=== PATIENT | female | born 1960 | race Hispanic/Latino ===

== ENCOUNTER 2018-06-22 19:04 | Inpatient (IN) | payer OTHER, SELFPAY ==
[~2018-06-22] VITALS: Ht 154.9 cm; Wt 81.0 kg
[~2018-06-22 19:04] MED LIST: TYL4 GT
[2018-06-22] MEDS ORDERED: ONDANSETRON HCL 4 MG/2 ML VIAL ONE ×2 (19:40→21:23)
[2018-06-22 19:55] LABS: APPEARANCE,URINE CLEAR (CLEAR); BILIRUBIN,URINE SMALL (NEGATIVE); COLOR,URINE YELLOW (YELLOW); GLUCOSE, URINE (UA) NEGATIVE (NEGATIVE); KETONES,URINE 15 mg/dL (NEGATIVE); LEUKOCYTE ESTERASE ,URINE NEGATIVE (NEGATIVE); NITRATE,URINE NEGATIVE (NEGATIVE); OCCULT BLOOD,URINE SMALL (NEGATIVE); PROTEIN,URINE TRACE (NEGATIVE); UROBILINOGEN,URINE 0.2 mg/dL (0.2-1.0)
[2018-06-22 19:59] LABS: BACTERIA,URINE Few /HPF (None Seen); MUCUS,URINE Rare LPF (None Seen); SQUAMOUS EPITHELIAL CELL,UR Rare /HPF (0-2); WBC,URINE 0-1 /HPF (0-1)
[2018-06-22 20:04] LABS: BASOPHILS % (AUTO) 0.3 % (0.0-5.0); INR 1.09 (0.85-1.15); LYMPHOCYTES % (AUTO) 7.7 % (21.0-51.0); MEAN CORPUSCULAR HEMOGLOBIN 30.9 pg (27.0-33.0); MEAN CORPUSCULAR HGB CONC 34.6 g/dL (32.0-36.0); MEAN CORPUSCULAR VOLUME 89.5 fL (79-99); MONOCYTES % (AUTO) 2.2 % (3.0-13.0); NEUTROPHILS % (AUTO) 89.8 % (40.0-77.0); PARTIAL THROMBOPLASTIN TIME 32.2 SEC (26.3-35.5); PLATELET COUNT (AUTO) 294 K/uL (130-400); PROTHROMBIN TIME 11.4 SEC (9.6-11.6); RED CELL DISTRIBUTION WIDTH 13.3 % (11.0-15.5); WHITE BLOOD COUNT (AUTO) 14.5 K/uL (4.8-10.8)
[2018-06-22 20:07] LABS: CARBON DIOXIDE 28 mmol/L (21-32); CHLORIDE 97 mmol/L (101-111); GLOMERULAR FILTR. RATE CALC 61 mL/min (>60); GLUCOSE,RANDOM 141 mg/dL (70-105); POTASSIUM 3.2 mmol/L (3.5-5.1); SODIUM SERUM 135 mmol/L (136-145); UREA NITROGEN, BLOOD 11 mg/dL (7-18)
[2018-06-22 20:13] LABS: OCCULT BLOOD STOOL SINGLE ONLY NEGATIVE (NEGATIVE)
[2018-06-22] MEDS ORDERED: HYOSCYAMINE SULFATE 0.125 MG TAB.SUBL SL ONE (20:13)
[2018-06-22 20:17] LABS: ALANINE AMINOTRANSFERASE 40 U/L (12-78); ALBUMIN 4.1 g/dL (3.5-5.0); ASPARTATE AMINOTRANSFERASE 33 U/L (10-37); BILIRUBIN,TOTAL 0.4 mg/dL (0.2-1.0); CREATINE KINASE, TOTAL 87 U/L (21-232); MYOGLOBIN 38 ng/mL (10-92); TOTAL PROTEIN, SERUM 8.1 g/dL (6.0-8.3); TROPONIN I < 0.04 ng/mL (0.00-0.06)
[2018-06-22] MEDS ORDERED: ACETAMINOPHEN 325 MG TAB ONE (22:51)
[2018-06-22] MEDS ORDERED: CEFTRIAXONE SODIUM 1 GM IVP SCH (23:15)
[2018-06-22] MEDS ORDERED: MAGNESIUM 2GM PREMIX 50ML 50 ML IV PRN (23:15)
[2018-06-23 00:10] VITALS: BP 91/51
[2018-06-23] MEDS ORDERED: ONDANSETRON HCL MDV 20ML 2 MG/ML VIAL IV PRN (00:15)
[2018-06-23] MEDS ORDERED: DEXTROSE 50%-WATER 50 ML DISP.SYRIN IV PRN (00:15)
[2018-06-23] MEDS ORDERED: ACETAMINOPHEN 325 MG TAB PO PRN (00:15)
[2018-06-23] MEDS ORDERED: GLUCAGON 1MG KIT 1 MG ML IM PRN (00:15)
[2018-06-23] MEDS: SODIUM CHLORIDE 0.9% 1000ML 1,000 ML IV SCH ×3 (00:36→12:09)
[2018-06-23 04:00] VITALS: BP 101/52
[2018-06-23 05:53] LABS: HEMATOCRIT 35.3 % (36-48); MEAN CORPUSCULAR VOLUME 88.5 fL (79-99); PLATELET COUNT (AUTO) 242 K/uL (130-400); RED BLOOD CELL COUNT(AUTO) 3.99 MIL/uL (4.00-5.50); RED CELL DISTRIBUTION WIDTH 13.2 % (11.0-15.5); WHITE BLOOD COUNT (AUTO) 13.6 K/uL (4.8-10.8)
[2018-06-23 06:15] LABS: BILIRUBIN,TOTAL 0.4 mg/dL (0.2-1.0); CREATININE 0.7 mg/dL (0.5-1.5); TOTAL PROTEIN, SERUM 6.3 g/dL (6.0-8.3)
[2018-06-23 06:16] LABS: POTASSIUM 2.9 mmol/L (3.5-5.1)
[2018-06-23] MEDS: POTASSIUM CHLORIDE 20MEQ/100ML 100 ML IV PRN (06:41)
[2018-06-23] MEDS ORDERED: INSULIN HUMULIN R 100 UNIT/ML 3ML SQ SCH (07:30)
[2018-06-23 08:00] VITALS: BP 74/37
[2018-06-23] MEDS: FAMOTIDINE/PF 20 MG/2 ML VIAL IV SCH (09:03)
[2018-06-23] MEDS: ENOXAPARIN SODIUM 30 MG/0.3 ML SQ SCH (09:05)
[2018-06-23 11:56] VITALS: BP 108/57
[2018-06-23] MEDS: LEVOFLOXACIN 500 MG/D5W 100 ML 100 ML IV SCH (12:09)
[2018-06-23] MEDS ORDERED: POTASSIUM CHLORIDE 10% ELIXIR 20 MEQ/15 ML UDCUP PO SCH (15:45)
[2018-06-23 16:00] VITALS: BP 108/63
[2018-06-23] MEDS: NS-20 MEQ KCL 1000ML 1,000 ML IV SCH (16:57)
[2018-06-23] MEDS: METRONIDAZOLE 500MG/100ML BAG 100 ML IV SCH ×2 (16:58→22:36)
[2018-06-23 20:00] VITALS: BP 96/55
[2018-06-23] MEDS ORDERED: FLUO-126 PO (22:47)
[2018-06-23] MEDS ORDERED: HYDR25TA PO (22:47)
[2018-06-23] MEDS ORDERED: METF-446 PO (22:47)
[2018-06-23] MEDS ORDERED: LEVO50TA11 PO (22:47)
[2018-06-23] MEDS ORDERED: LISI-613 PO (22:47)
[2018-06-23] MEDS ORDERED: ACET1TAB12 PO (22:52)
[2018-06-23] MEDS ORDERED: GLIM2TAB3 PO (22:52)
[2018-06-23] MEDS ORDERED: CEPH500T PO (22:52)
[2018-06-24] VITALS (7 sets, daily range): BP systolic 99–129; BP diastolic 50–79
[2018-06-24 04:15] LABS: HEMATOCRIT 31.9 % (36-48); MEAN CORPUSCULAR HEMOGLOBIN 31.1 pg (27.0-33.0); MEAN CORPUSCULAR HGB CONC 35.1 g/dL (32.0-36.0); MEAN CORPUSCULAR VOLUME 88.5 fL (79-99); PLATELET COUNT (AUTO) 198 K/uL (130-400); RED BLOOD CELL COUNT(AUTO) 3.61 MIL/uL (4.00-5.50); RED CELL DISTRIBUTION WIDTH 13.3 % (11.0-15.5); WHITE BLOOD COUNT (AUTO) 9.1 K/uL (4.8-10.8)
[2018-06-24 04:35] LABS: ALBUMIN 2.5 g/dL (3.5-5.0); BILIRUBIN,TOTAL 0.3 mg/dL (0.2-1.0); CREATININE 0.6 mg/dL (0.5-1.5); POTASSIUM 3.3 mmol/L (3.5-5.1); TOTAL PROTEIN, SERUM 5.7 g/dL (6.0-8.3)
[2018-06-24] MEDS: NS-20 MEQ KCL 1000ML 1,000 ML IV SCH ×2 (05:22→13:24)
[2018-06-24] MEDS: METRONIDAZOLE 500MG/100ML BAG 100 ML IV SCH ×3 (05:22→21:16)
[2018-06-24] MEDS ORDERED: DICYCLOMINE HCL 20 MG TAB PO PRN (05:45)
[2018-06-24] MEDS ORDERED: LEVOTHYROXINE 50 MCG TABLET PO SCH (07:30)
[2018-06-24] MEDS: METFORMIN HCL 500 MG TABLET PO SCH ×2 (08:00→08:20)
[2018-06-24] MEDS: FAMOTIDINE/PF 20 MG/2 ML VIAL IV SCH (08:20)
[2018-06-24] MEDS: ENOXAPARIN SODIUM 30 MG/0.3 ML SQ SCH (08:20)
[2018-06-24] MEDS ORDERED: LISINOPRIL 20 MG TABLET PO SCH (09:00)
[2018-06-24] MEDS ORDERED: GLIMEPIRIDE 2 MG TABLET PO SCH (09:00)
[2018-06-24] MEDS ORDERED: FLUOXETINE HCL 20 MG CAPSULE PO SCH (09:00)
[2018-06-24] MEDS ORDERED: HYDROCHLOROTHIAZIDE 25 MG TABLET PO SCH (09:00)
[2018-06-24] MEDS: LIDOCAINE HCL-MPF 1% 2ML VIAL IVP PRN ×3 (09:58→22:31)
[2018-06-24] MEDS: POTASSIUM CHLORIDE 20MEQ/100ML 100 ML IV PRN ×3 (09:58→22:32)
[2018-06-24] MEDS: LEVOFLOXACIN 500 MG/D5W 100 ML 100 ML IV SCH (11:52)
[2018-06-25] MEDS: NS-20 MEQ KCL 1000ML 1,000 ML IV SCH ×2 (02:39→11:24)
[2018-06-25 04:00] VITALS: BP 113/69
[2018-06-25 04:35] LABS: HEMATOCRIT 33.7 % (36-48); MEAN CORPUSCULAR HEMOGLOBIN 31.1 pg (27.0-33.0); MEAN CORPUSCULAR HGB CONC 35.1 g/dL (32.0-36.0); MEAN CORPUSCULAR VOLUME 88.4 fL (79-99); PLATELET COUNT (AUTO) 226 K/uL (130-400); RED BLOOD CELL COUNT(AUTO) 3.81 MIL/uL (4.00-5.50); RED CELL DISTRIBUTION WIDTH 13.5 % (11.0-15.5); WHITE BLOOD COUNT (AUTO) 6.6 K/uL (4.8-10.8)
[2018-06-25 04:41] LABS: CREATININE 0.5 mg/dL (0.5-1.5)
[2018-06-25] MEDS: METRONIDAZOLE 500MG/100ML BAG 100 ML IV SCH (05:34)
[2018-06-25 08:00] VITALS: BP 113/64
[2018-06-25] MEDS: FAMOTIDINE/PF 20 MG/2 ML VIAL IV SCH (09:16)
[2018-06-25] MEDS: ENOXAPARIN SODIUM 30 MG/0.3 ML SQ SCH (09:16)
[2018-06-25] MEDS: LEVOFLOXACIN 500 MG/D5W 100 ML 100 ML IV SCH (11:21)
[2018-06-25] MEDS ORDERED: METRONIDAZOLE 500 MG TABLET PO SCH (11:30)
[2018-06-25] MEDS ORDERED: LEVO500T2 PO (11:37)
[2018-06-25] MEDS ORDERED: FAMO-136 PO (11:37)
[2018-06-25] MEDS ORDERED: METR500T4 PO (11:37)
[2018-06-25] MEDS ORDERED: FAMOTIDINE 20MG TAB 20 MG TAB PO SCH (21:00)
[2018-06-26] MEDS ORDERED: LEVOFLOXACIN 500 MG TABLET PO SCH (09:00)
== END 2018-06-25 16:35 | disposition home or self-care (01) | DRG 720 ==
LOC: EDH 19:04 → EDHIP 19:05 → 3AH 06-23 00:02 → 3DH 06-23 18:40
PROVIDERS: ADMIT Hospitalist; ATTEND Hospitalist
DX: A41.9 Sepsis, unspecified organism (principal); E11.65 Type 2 diabetes mellitus with hyperglycemia; E03.9 Hypothyroidism, unspecified; E86.0 Dehydration; K52.9 Noninfective gastroenteritis and colitis, unspecified; E87.6 Hypokalemia; F32.9 Major depressive disorder, single episode, unspecified; I10 Essential (primary) hypertension; E66.9 Obesity, unspecified; Z68.33 Body mass index [BMI] 33.0-33.9, adult; E87.1 Hypo-osmolality and hyponatremia; E83.51 Hypocalcemia; Z83.3 Family history of diabetes mellitus; Z82.3 Family history of stroke; Z82.0 Family history of epilepsy and other diseases of the nervous system; Z82.49 Family history of ischemic heart disease and other diseases of the circulatory system; Z82.5 Family history of asthma and other chronic lower respiratory diseases
CPT/HCPCS: 36415; 71045; 74018; 80048; 80053; 81001; 82270; 82550; 83605; 83735; 83874; 84132; 84484; 85025; 85027; 85610; 85730; 87040; 87046; 87088; 87324; 87507; 87804; 93005; J0696; J1650; J1956; J2405; J3480; J3490; J7030

== ENCOUNTER → 2021-03-28 | Outpatient (CLI) | payer OTHER ==
[~2021-03-28] MED LIST changes: +FAMO-136 PO; +GADOTERATE MEGLUMINE 10 MMOL/20 ML VIAL IV ONE; +LEVO500T2 PO; +METR-172 PO; -TYL4 GT
== END | disposition home or self-care (01) ==
LOC: RAH 13:12
PROVIDERS: ATTEND Otolaryngology Plastic Surgery within the Head & Neck
DX: R42 Dizziness and giddiness (principal); H93.8X3 Other specified disorders of ear, bilateral; H90.3 Sensorineural hearing loss, bilateral

== ENCOUNTER 2024-12-01 22:00 | Emergency (ER) | payer OTHER ==
[~2024-12-01] VITALS: Ht 154.9 cm; Wt 88.5 kg
[~2024-12-01 22:00] MED LIST changes: -GADOTERATE MEGLUMINE 10 MMOL/20 ML VIAL IV ONE
[2024-12-01 22:02] VITALS: TEMP 96.8
--- NOTE | 2024-12-01 22:34 | ERN ---
ED Note History of Present Illness Stated Complaint: NECK PAIN Chief Complaint: Neck Pain Time Seen by MD: 22:03 Dictation: PATIENT IS A 64-YEAR-OLD FEMALE COMING IN TODAY WITH LEFT LATERAL NECK PAIN THAT RADIATES TO HER LEFT TEMPORAL AREA ONSET WAS THREE DAYS AGO. SHE DENIES FEVER CHILLS NAUSEA VOMITING NO MIDLINE SPINE PAIN ON EXAM. SHE STATES SHE HAS NOT BEEN CARE DOCTOR. HAS NOT TAKEN ANYTHING PRIOR TO ARRIVAL FOR PAIN. NO MASTOID TENDERNESS ON EXAM NIH IS 0 Allergies: Coded Allergies: No Known Drug Allergies (Verified Allergy, Unknown, 07/11/14) Home Meds Active Scripts Famotidine (Pepcid) 20 Mg Tablet, 20 MG PO BID for 5 Days, TAB Prov:BLAYNE NORMAN MD 06/25/18 Metronidazole (Metronidazole) 500 Mg Tablet, 500 MG PO TID for 5 Days, TAB Prov:BLAYNE NORMAN MD 06/25/18 Levofloxacin (Levaquin) 500 Mg Tablet, 500 MG PO DAILY for 5 Days, TAB Prov:BLAYNE NORAMN MD 06/25/18 Past Medical History Past Medical History: High Cholesterol Surgical History: Other, Surgical History Other: ABD, RT KNEE History: Not Applicable RN Note Reviewed/Agreed w/PFSH: Yes Review of System Dictation CONSTITUTIONAL: NEGATIVE EXCEPT FOR HPI HEAD/FACE: NEGATIVE EXCEPT FOR HPI EENT: NEGATIVE EXCEPT FOR HPI RESPIRATORY: NEGATIVE EXCEPT FOR HPI GASTROINTESTINAL/ABDOMINAL: NEGATIVE EXCEPT FOR HPI GENITOURINARY: NEGATIVE EXCEPT FOR HPI MUSCULOSKELETAL: NEGATIVE EXCEPT FOR HPI LEFT LATERAL NECK TENDERNESS THAT RADIATES TO THE LEFT PARIETAL AREA NO MIDLINE SPINE PAIN INTEGUMENTARY: NEGATIVE EXCEPT FOR HPI NEUROLOGICAL/PSYCH: NEGATIVE EXCEPT FOR HPI HEMATOLOGIC/LYMPHATIC: NEGATIVE EXCEPT FOR HPI ALL SYSTEMS NEGATIVE, EXCEPT NOTED ABOVE. 13 POINT REVIEW OF SYSTEMS ASSESSED AND ALL NEGATIVE EXCEPT FOR ABOVE. Initial Vital Sign VS Vital Signs Date Time Temp Pulse Resp B/P (MAP) Pulse Ox O2 Delivery O2 Flow Rate FiO2 12/01/24 22:02 96.8 83 20 168/91 99 Physical Exam Dictation VITAL SIGNS REVIEWED GENERAL APPEARANCE: ALERT, ORIENTED X 3, MODERATE ACUTE DISTRESS, WELL DEVELOPED, NOURISHED. HEAD AND FACE: NON-TRAUMATIC. EYES: PERRL, PINK CONJUNCTIVAS, EYELID NO TRAUMA, ANTERIOR CHAMBER WITH ARCUS SENILIS. EARS: PINNAS INTACT AND NO SIGNS OF TRAUMA OR ERYTHEMA EAR CANALS CLEAR AND NO DISCHARGE TM NO ERYTHEMA NOSE: NO DISCHARGE, NO BLEEDING. OROPHARYNX: MOUTH NORMAL, TONGUE PINK, PHARYNX CLEAR,NO ERYTHEMA, TONSILS NO EXUDATES, NO ABSCESSES NOTED, MUCOUS MEMBRANE MOIST NECK: SUPPLE, NON-TENDER, NO THYROMEGALY, NO MASSES, NO JVD, NO BRUITS BREAST:DEFERRED CHEST:NO TENDERNESS, NO CREPITUS, NO PARADOXICAL MOVEMENT, NO RETRACTIONS LUNGS:CLEAR, WELL-VENTILATED, SYMMETRIC, NO RALES, NO WHEEZING, NO RHONCHI, NO STRIDOR, GOOD BREATH SOUNDS BILATERALLY HEART: REGULAR RATE, REGULAR RHYTHM, NO MURMUR, NO GALLOPS VASCULAR: NO PERIPHERAL EDEMA, ABDOMEN: SOFT, POSITIVE BOWEL SOUNDS, NONDISTENDED, NO GUARDING, NONTENDER, NO REBOUND, NO MASSES NO HEPATOMEGALY, NO SPLENOMEGALY, NO SANDY'S SIGN, NO HERNIAS. RECTAL: DEFERRED GENITAL: DEFERRED NEUROLOGICAL: NORMAL SPEECH, MOTOR FUNCTION INTACT, SENSORY FUNCTION INTACT MUSCULOSKELETAL: LEFT LATERAL TENDERNESS WITH MUSCULAR SPASM NOTED. NO MIDLINE SPINE PAIN NO STEP-OFF, FULL RANGE OF MOTION, BACK NONTENDER, FULL RANGE OF MOTION, PAIN EXTENDS TO THE LEFT TEMPORAL AREA WITH PALPATION EXTREMITIES: NONTENDER, FULL RANGE OF MOTION SKIN: COLOR PINK, DRY, NO TURGOR, NO RASH, NO LACERATIONS, NO ABRASIONS, NO CONTUSIONS. LYMPHATIC: DEFERRED Results (Laboratory/Radiology) Laboratory/Radiology Laboratory Tests Test 12/01/24 22:34 White Blood Count 10.5 K/uL (4.8-10.8) Red Blood Count 4.34 MIL/uL (4.00-5.50) Hemoglobin 13.0 g/dL (12.0-16.0) Hematocrit 38.9 % (36-48) Mean Corpuscular Volume 89.6 fL (79-99) Mean Corpuscular Hemoglobin 30.0 pg (27.0-33.0) Mean Corpuscular Hemoglobin Concent 33.4 g/dL (32.0-36.0) Red Cell Distribution Width 13.2 % (11.0-15.5) Platelet Count 302 K/uL (130-400) Mean Platelet Volume 10.6 fL (7.5-10.5) H Immature Granulocyte % (Auto) 0.4 % (0-1) Neutrophils (%) (Auto) 59.7 % (40.0-77.0) Lymphocytes (%) (Auto) 32.6 % (21.0-51.0) Monocytes (%) (Auto) 5.1 % (3.0-13.0) Eosinophils (%) (Auto) 1.6 % (0.0-8.0) Basophils (%) (Auto) 0.6 % (0.0-5.0) Neutrophils # (Auto) 6.3 K/uL (1.8-7.7) Lymphocytes # (Auto) 3.4 K/uL (1.0-4.8) Monocytes # (Auto) 0.5 K/uL (0.1-1.0) Eosinophils # (Auto) 0.17 K/uL (0.00-0.70) Basophils # (Auto) 0.06 K/uL (0.00-0.20) Absolute Immature Granulocyte (auto 0.04 K/uL (0-1) Nucleated Red Blood Cells 0.0 % (0.0-0.19) Sodium Level 141 mmol/L (136-145) Potassium Level 3.5 mmol/L (3.5-5.1) Chloride Level 104 mmol/L (101-111) Carbon Dioxide Level 31 mmol/L (21-32) Blood Urea Nitrogen 19 mg/dL (7-18) H Creatinine 0.8 mg/dL (0.5-1.0) Glomerular Filtration Rate Calc 83 mL/min (>90) Random Glucose 108 mg/dL (70-105) H Total Calcium 9.2 mg/dL (8.5-10.1) Total Creatine Kinase 246 U/L (21-232) #H Troponin I High Sensitivity < 4 ng/L (4-50) L B-Type Natriuretic Peptide 17 pg/mL (0-100) 2358/CHEST X-RAY CLEAR CERVICAL SPINE NEGATIVE Labs Reviewed?: Yes EKG: (+) NSR EKG Comment: EKG NORMAL SINUS RHYTHM/HEART RATE 80/AXIS NORMAL/NO ECTOPY ED Course ED Course Orders Procedure Category Date Status Time Vital Signs Per CPOE 12/01/24 Transmitted Routine 22:11 B-Type Natriuretic LAB 12/01/24 Complete Peptide 22:11 Chest 1vw RAD 12/01/24 Taken 22:11 12 Lead Ekg Tracing- EKG 12/01/24 Logged Technical 22:11 Oxygen By Nc/Pulse Ox CPOE 12/01/24 Transmitted 22:11 Maintain Iv CPOE 12/01/24 Transmitted 22:11 Iv Insertion CPOE 12/01/24 Transmitted 22:11 Cardiac Monitoring CPOE 12/01/24 Transmitted 22:11 Pulse Oximetry With CPOE 12/01/24 Transmitted Vs And Prn 22:11 Cbc With Differential LAB 12/01/24 Complete 22:11 Activity: Br W/Brp CPOE 12/01/24 Transmitted With Assist 22:11 Creatine Kinase, Total LAB 12/01/24 Complete 22:11 Troponin I High LAB 12/01/24 Complete Sensitivity 22:11 Urinalysis Profile LAB 12/01/24 Logged 22:11 Basic Metabolic Panel LAB 12/01/24 Complete 22:11 Saline Lock Iv CPOE 12/01/24 Transmitted 22:34 Cyclobenzaprine Hcl PHA 12/01/24 Complete (Cyclobenzaprine Hcl 23:00 Dexamethasone 4mg/Ml PHA 12/01/24 Complete 1ml Vial (Dexametha 23:00 Ketorolac PHA 12/01/24 Complete Tromethamine 30mg/Ml 23:00 Cerv Spine 2-3vws RAD 12/01/24 Taken 23:10 Current Medications Medications (Trade) Dose Ordered Sig/Angelica Route PRN Reason Start Time Stop Time Status Last Admin Dose Admin Cyclobenzaprine HCl (Cyclobenzaprine HCl) 10 mg ONCE ONCE PO 12/01/24 23:00 12/01/24 23:01 DC Dexamethasone Sodium Phosphate (dexaMETHasone 4MG/ML 1ML VIAL) 8 mg ONCE ONCE IM 12/01/24 23:00 12/01/24 23:01 DC Ketorolac Tromethamine (toRADol) 30 mg ONCE ONCE IVP 12/01/24 23:00 12/01/24 23:01 DC Vital Signs Date Time Temp Pulse Resp B/P (MAP) Pulse Ox O2 Delivery O2 Flow Rate FiO2 12/01/24 22:02 96.8 83 20 168/91 99 0115/X-RAYS ARE NEGATIVE CARDIAC WORKUP NEGATIVE BLOOD SUGAR IS ELEVATED. PATIENT WILL BE TREATED ACUTE TORTICOLLIS. SHE WILL BE GIVEN TORADOL/DECADRON/CYCLOBENZAPRINE DISCHARGED HOME WITH IBUPROFEN AND CYCLOBENZAPRINE TOLD TO SEE HER PRIMARY CARE DOCTOR HEART Score Response (Comments) Value History: Low suspicion (0) 0 Age: 45-65yrs (+1) 1 Risk Factors: 1-2 risk factors (+1) 1 Initial Troponin: Normal limit (0) 0 Total 2 Medical Decision Making MDM MDM: DIFFERENTIAL DIAGNOSIS: ACS/AMI/ELECTROLYTE IMBALANCE/DEHYDRATION/TORTICOLLIS/CERVICAL STRAIN RATIONALE: TESTS CONSIDERED AND ORDERED SECONDARY TO SHARED DECISION MAKING INCLUDE: RADIOLOGY/LABS/EKG PREVIOUS OUTSIDE RECORDS REVIEWED: OLD ER VISITS. RISK OF COMPLICATION AND/OR MORBIDITY OR MORTALITY OF PATIENT MANAGEMENT: NONE MEDICATIONS-PER MEDICATION RECONCILIATION NEED FOR HOSPITALIZATION: PATIENT DOES NOT MEET CRITERIA FOR HOSPITALIZATION. NO NEED FOR EMERGENCY MAJOR/MINOR SURGERY: NO THERE ARE NO SOCIAL CONCERNS WITH THIS PATIENT. PRESCRIPTION DRUG MANAGEMENT IBUPROFEN/FLEXERIL/MEDROL DOSEPAK PRESCRIPTIONS WILL INCLUDE SYMPTOMATIC CARE PATIENT'S PRIOR EXTERNAL MEDICAL RECORDS FROM OTHER ER VISITS WERE REVIEWED BY ME INDICATED. PRIOR TESTING AND RESULTS FROM PREVIOUS VISITS WERE REVIEWED. PRIOR TESTS WERE TAKEN INTO ACCOUNT WITH MEDICAL DECISION MAKING AND RESOURCE UTILIZATION, INDEPENDENT HISTORIAN/HISTORIANS WERE USED TO OBTAIN COMPLETE MEDICAL HISTORY. I INDEPENDENTLY INTERPRETED THE TEST THAT WERE PERFORMED, RESULTS WERE REVIEWED BY ME AND CONSIDERED FINDINGS ON RADIOLOGY IF ORDERED. MEDICAL MANAGEMENT AND EXAMINATION INTERPRETATION DISCUSSIONS WERE HAD BY ME WITH OTHER QUALIFIED HEALTHCARE PROFESSIONALS INDICATED FOR THE PATIENT'S CARE. DX & DISP Disposition: Discharge Departure Impression: Primary Impression: Acute torticollis Additional Impressions: Hyperglycemia, Dehydration Condition: Stable Scripts Methylprednisolone (Medrol) 4 Mg Tab.ds.pk 1 TAB PO AD for 6 Days, #21 TAB 0 Refills 6 on day 1 then reduce by one tablet daily until gone Prov: RIGOBERTO ZAMBRANO [employer] SYSTEMS DESIGNER 12/02/24 Cyclobenzaprine HCl (Cyclobenzaprine HCl) 10 Mg Tablet 1 TAB PO TID for muscle spasms for 10 Days, #30 TAB 0 Refills Prov: RIGOBERTO ZAMBRANO [employer] SYSTEMS DESIGNER 12/02/24 Ibuprofen (Ibuprofen 800 mg Tab) 800 Mg Tab 800 MG PO Q8H PRN for fever or pain, #30 TAB 0 Refills Prov: RIGOBERTO ZAMBRANO [employer] SYSTEMS DESIGNER 12/02/24 Additional Instructions: FOLLOW-UP WITH PRIMARY CARE PROVIDER IN 1 TO 2 DAYS. TAKE MEDICATIONS DIRECTED HERE IN THE EMERGENCY ROOM. OKAY TO CONTINUE HOME MEDICATIONS UNLESS OTHERWISE DISCUSSED DURING YOUR VISIT IN THE EMERGENCY ROOM TODAY. RETURN TO YOUR NEAREST EMERGENCY ROOM IF SYMPTOMS WORSEN OR IF THERE IS NO IMPROVEMENT. CALL 911 IF YOU NEED IMMEDIATE ASSISTANCE. TAKE TYLENOL OR MOTRIN [id number] NEEDED AND IF NO CONTRAINDICATIONS ARE PRESENT. INCREASE ORAL HYDRATION. A WOUND CULTURE OR URINE CULTURE WAS ORDERED HERE IN THE EMERGENCY ROOM DEPARTMENT PLEASE FOLLOW-UP WITH PRIMARY CARE PROVIDER AND ADVISE THEM TO GET REPEAT PORTS FROM OUR FACILITY. IF YOU HAD ANY JONATHAN WRAP/SPLINTS THAT WERE APPLIED HERE, PLEASE DO NOT REMOVE THEM UNTIL YOU SEE YOUR PRIMARY CARE OR SPECIALTY. TAKE IBUPROFEN AND FLEXERIL EVERY 8 HOURS WITH FOOD FOR THE NEXT THREE DAYS. TAKE MEDROL DOSEPAK DIRECTED UNTIL GONE. WARM COMPRESSES TO NECK THREE TO 4 TIMES A DAY AND SEE YOUR PRIMARY CARE DOCTOR FOR FOLLOW UP AND MANAGEMENT Referrals: REJI GORDILLO (PCP) Time of Disposition: 01:16 I have reviewed the case, and I agree with, Diagnosis and Plan RIGOBERTO ZAMBRANO NP Dec 01, 2024 22:34
[2024-12-01 22:44] LABS: BASOPHILS # (AUTO) 0.06 K/uL (0.00-0.20); BASOPHILS % (AUTO) 0.6 % (0.0-5.0); EOSINOPHILS # (AUTO) 0.17 K/uL (0.00-0.70); EOSINOPHILS % (AUTO) 1.6 % (0.0-8.0); HEMATOCRIT 38.9 % (36-48); IMMATURE GRANULOCYTE ABSOLUTE 0.04 K/uL (0-1); LYMPHOCYTES # (AUTO) 3.4 K/uL (1.0-4.8); LYMPHOCYTES % (AUTO) 32.6 % (21.0-51.0); MEAN CORPUSCULAR HGB CONC 33.4 g/dL (32.0-36.0); MEAN CORPUSCULAR VOLUME 89.6 fL (79-99); MONOCYTES # (AUTO) 0.5 K/uL (0.1-1.0); MONOCYTES % (AUTO) 5.1 % (3.0-13.0); NEUTROPHILS # (AUTO) 6.3 K/uL (1.8-7.7); NEUTROPHILS % (AUTO) 59.7 % (40.0-77.0); PLATELET COUNT (AUTO) 302 K/uL (130-400); RED BLOOD CELL COUNT(AUTO) 4.34 MIL/uL (4.00-5.50); RED CELL DISTRIBUTION WIDTH 13.2 % (11.0-15.5); WHITE BLOOD COUNT (AUTO) 10.5 K/uL (4.8-10.8)
[2024-12-01 22:53] LABS: CREATININE 0.8 mg/dL (0.5-1.0); POTASSIUM 3.5 mmol/L (3.5-5.1)
[2024-12-01 23:09] LABS: B-TYPE NATRIURETIC PEPTIDE 17 pg/mL (0-100)
[2024-12-02] MEDS ORDERED: CYCL-309 PO (01:18)
[2024-12-02] MEDS ORDERED: METH4TAB3 PO (01:18)
[2024-12-02] MEDS ORDERED: IBUP-2077 PO (01:18)
[2024-12-02] MEDS: dexaMETHasone SOD PHOSPHATE 4 MG/ML 1ML VIAL IM ONE (01:38)
[2024-12-02] MEDS: CYCLOBENZAPRINE HCL 10 MG TABLET PO ONE (01:39)
[2024-12-02] MEDS: ketOROlac 30MG VIAL (30MG/ML) IVP ONE (01:39)
[2024-12-02 01:54] VITALS: BP 153/88; PULSE 80; RESP 16; O2SAT 99
--- NOTE | 2024-12-02 01:55 | NUR ---
PT REFUSED DEXAMETHASONE INJECTION.
--- NOTE | 2024-12-02 08:08 | HMCIMG ---
CERVICAL SPINE RADIOGRAPHS - 2-3 VIEWS INDICATION: Left lateral neck pain without trauma COMPARISON: None FINDINGS: AP, lateral, and odontoid views. Straightening of the normal lordosis may be related to overlying muscle spasm, underlying degenerative joint disease and/or patient positioning. Shallow cervical levoscoliosis. No acute fracture or malalignment identified. Prevertebral soft tissues are not swollen. The atlanto-dens interval is within normal limits for patient's age. Spot view of the odontoid is without evidence for fracture. Vertebral body heights are within normal limits. Mild to moderate anterior endplate osteophytic spurring at the C4-C5 and C5-C6 levels. Moderate disc height loss at the C5-C6 level. Multilevel mild to moderate facet disease. Low-grade (1-2 mm) anterolisthesis of C2 upon C3 is based on facet disease. Visible lung apices are clear. IMPRESSION: Degenerative changes as described, without superimposed acute component.
--- NOTE | 2024-12-02 08:11 | HMCIMG ---
PORTABLE CHEST RADIOGRAPH INDICATION: CHEST PAIN COMPARISON: 06/22/2018 FINDINGS: Heart size is normal. The pulmonary vascularity and efren appear normal. No abnormal pulmonary parenchymal opacity or consolidation identified. No significant pleural effusion noted. No pneumothorax detected. IMPRESSION: No radiographic evidence for any acute cardiopulmonary process.
--- NOTE | 2024-12-02 11:32 | EKG ---
[facility] Test Date: 2024-12-01 Test Time: 22:15:43 Pat Name: SARA RAMIREZ Department: ED Room: Gender: F Academic Physician: [id number] : [id number] Requested By: MAURICE MANZANARES Order Number: [id number] Reading MD: Renae Carpio Measurements Intervals [place] Rate: 80 P: 48 SC: 159 QRS: -5 QRSD: 92 T: 33 QT: 362 QTc: 419 Interpretive Statements Sinus rhythm Low voltage, precordial leads Compared to ECG 06/22/2018 19:22:40 Low QRS voltage now present Electronically Signed On 12-02-2024 14:39:12 CDT by Renae Carpio Please click the below link to view image of tracing.
== END 2024-12-02 02:01 | disposition home or self-care (01) ==
LOC: EDH 22:00
DX: M43.6 Torticollis (principal); E86.0 Dehydration; R73.9 Hyperglycemia, unspecified; E78.00 Pure hypercholesterolemia, unspecified; Z79.899 Other long term (current) drug therapy; Z98.890 Other specified postprocedural states
CPT/HCPCS: 99285; 71045; 82550; 84484; 80048; 83880; 85025; 36415; 72040; 93005; 96374; 96372; J1100 ×2; J1885 ×2